=== PATIENT | male | born 1935 | race Caucasian/White ===

== ENCOUNTER 2020-06-05 16:34 | Inpatient (IN) ==
[2020-06-09] MEDS ORDERED: *HR* Dextrose 50 % in Water (Vial) 50 ML VIAL IVP PRN (17:42)
[2020-06-09] MEDS ORDERED: D5% in Water 1,000 ML IVC PRN (17:42)
[2020-06-09] MEDS ORDERED: Dextrose Gel 15 GM/37.5 ML TUBE PO PRN ×2 (17:42)
[2020-06-09] MEDS: carvediloL 25 MG TABLET PO SCH (22:07)
[2020-06-09] MEDS: Insulin LISPRO 300 UNITS/3 ML VIAL SQ SCH (22:07)
[2020-06-09] MEDS: Gabapentin 400 MG CAPSULE PO SCH (22:07)
[2020-06-09] MEDS: GlipiZIDE 5 MG TABLET PO SCH (22:07)
[2020-06-10 05:35] LABS: Basophils # 0.1 K/mcL (0.0-0.2); Basophils % 1.3 %; Eosinophils # 0.3 K/mcL (0.0-0.6); Eosinophils % 4.3 %; Hematocrit 46.4 % (37.5-50.1); Hemoglobin 15.5 g/dL (12.9-16.9); Immature Granulocytes % 0.5 % (0-4); Lymphocytes # 1.9 K/mcL (0.6-4.6); Lymphocytes % 24.1 %; Mean Corpuscular HGB Conc 33.4 g/dL (31.6-35.5); Mean Corpuscular Hemoglobin 29.7 pg (28.0-33.3); Mean Corpuscular Volume 88.9 fL (83.0-100.0); Mean Platelet Volume 10.8 fL (9.4-12.4); Monocytes # 0.8 K/mcL (0.0-1.3); Monocytes % 9.9 %; Neutrophils # 4.8 K/mcL (1.6-8.9); Platelet Count 213 K/mcL (140-400); Red Blood Count 5.22 M/mcL (4.19-5.50); Red Cell Distribution Width 13.2 % (11.5-14.5); Segmented Neutrophils % 59.9 %
[2020-06-10 05:51] LABS: Calcium 8.6 mg/dL (8.6-10.3)
[2020-06-10] MEDS: Cholecalciferol (D-3) 1,000 UNIT (25MCG) TABLET PO SCH (08:33)
[2020-06-10] MEDS: Finasteride 5 MG TABLET PO SCH (08:33)
[2020-06-10] MEDS: amLODIPine 5 MG TABLET PO SCH (08:34)
[2020-06-10] MEDS: Aspirin 81 MG TAB.CHEW PO SCH (08:34)
[2020-06-10] MEDS: *HR* Metformin 500 MG TABLET PO SCH (08:34)
[2020-06-10] MEDS: Fenofibrate 54 MG TABLET PO SCH (08:34)
[2020-06-10] MEDS: Cyanocobalamin (B-12) 1,000 MCG TABLET PO SCH (08:34)
[2020-06-10] MEDS: GlipiZIDE 5 MG TABLET PO SCH ×2 (08:34→21:04)
[2020-06-10] MEDS: carvediloL 25 MG TABLET PO SCH ×2 (08:34→21:03)
[2020-06-10] MEDS: Insulin LISPRO 300 UNITS/3 ML VIAL SQ SCH ×4 (08:34→21:04)
[2020-06-10] MEDS: Gabapentin 400 MG CAPSULE PO SCH (21:04)
[2020-06-11] MEDS: Aspirin 81 MG TAB.CHEW PO SCH (09:20)
[2020-06-11] MEDS: Insulin LISPRO 300 UNITS/3 ML VIAL SQ SCH ×4 (09:20→20:23)
[2020-06-11] MEDS: GlipiZIDE 5 MG TABLET PO SCH ×2 (09:21→20:23)
[2020-06-11] MEDS: carvediloL 25 MG TABLET PO SCH ×2 (09:21→20:23)
[2020-06-11] MEDS: *HR* Metformin 500 MG TABLET PO SCH (09:21)
[2020-06-11] MEDS: Cholecalciferol (D-3) 1,000 UNIT (25MCG) TABLET PO SCH (09:21)
[2020-06-11] MEDS: Cyanocobalamin (B-12) 1,000 MCG TABLET PO SCH (09:21)
[2020-06-11] MEDS: amLODIPine 5 MG TABLET PO SCH (09:22)
[2020-06-11] MEDS: Fenofibrate 54 MG TABLET PO SCH (09:22)
[2020-06-11] MEDS: Finasteride 5 MG TABLET PO SCH (09:22)
[2020-06-11] MEDS: Gabapentin 400 MG CAPSULE PO SCH (20:24)
[2020-06-12 06:56] LABS: Basophils # 0.1 K/mcL (0.0-0.2); Basophils % 0.9 %; Eosinophils # 0.3 K/mcL (0.0-0.6); Eosinophils % 3.3 %; Hematocrit 46.7 % (37.5-50.1); Hemoglobin 15.6 g/dL (12.9-16.9); Immature Granulocytes % 0.9 % (0-4); Lymphocytes # 1.6 K/mcL (0.6-4.6); Lymphocytes % 19.9 %; Mean Corpuscular HGB Conc 33.4 g/dL (31.6-35.5); Mean Corpuscular Hemoglobin 29.9 pg (28.0-33.3); Mean Corpuscular Volume 89.5 fL (83.0-100.0); Mean Platelet Volume 11.1 fL (9.4-12.4); Monocytes # 0.7 K/mcL (0.0-1.3); Neutrophils # 5.2 K/mcL (1.6-8.9); Platelet Count 201 K/mcL (140-400); Red Blood Count 5.22 M/mcL (4.19-5.50); Red Cell Distribution Width 13.2 % (11.5-14.5); White Blood Count 7.9 K/mcL (4.3-11.1)
[2020-06-12 07:09] LABS: BUN/Creatinine Ratio 20 (6-26); Blood Urea Nitrogen 26 mg/dL (8-23); Calcium 8.4 mg/dL (8.6-10.3); Carbon Dioxide 26 mEq/L (23-29); Chloride 107 mEq/L (98-107); Glucose 85 mg/dL (70-105); Osmolality,Calculated 296 (280-300); Potassium 4.2 mEq/L (3.5-5.1); Sodium 141 mEq/L (136-145); eGFR For African Americans > 60 (> 60); eGFR For Non-African Americans 54 (> 60)
[2020-06-12] MEDS: Insulin LISPRO 300 UNITS/3 ML VIAL SQ SCH ×4 (07:30→21:30)
[2020-06-12] MEDS: GlipiZIDE 5 MG TABLET PO SCH ×2 (09:00→21:29)
[2020-06-12] MEDS: Aspirin 81 MG TAB.CHEW PO SCH (09:26)
[2020-06-12] MEDS: amLODIPine 5 MG TABLET PO SCH (09:26)
[2020-06-12] MEDS: Fenofibrate 54 MG TABLET PO SCH (09:26)
[2020-06-12] MEDS: Cyanocobalamin (B-12) 1,000 MCG TABLET PO SCH (09:27)
[2020-06-12] MEDS: *HR* Metformin 500 MG TABLET PO SCH (09:27)
[2020-06-12] MEDS: Finasteride 5 MG TABLET PO SCH (09:27)
[2020-06-12] MEDS: Cholecalciferol (D-3) 1,000 UNIT (25MCG) TABLET PO SCH (09:27)
[2020-06-12] MEDS: carvediloL 25 MG TABLET PO SCH ×2 (09:28→21:30)
[2020-06-12] MEDS: Gabapentin 400 MG CAPSULE PO SCH (21:29)
[2020-06-13] MEDS: Insulin LISPRO 300 UNITS/3 ML VIAL SQ SCH ×4 (08:24→21:13)
[2020-06-13] MEDS: Cholecalciferol (D-3) 1,000 UNIT (25MCG) TABLET PO SCH (08:46)
[2020-06-13] MEDS: Finasteride 5 MG TABLET PO SCH (08:46)
[2020-06-13] MEDS: Aspirin 81 MG TAB.CHEW PO SCH (08:47)
[2020-06-13] MEDS: Fenofibrate 54 MG TABLET PO SCH (08:47)
[2020-06-13] MEDS: *HR* Metformin 500 MG TABLET PO SCH (08:47)
[2020-06-13] MEDS: amLODIPine 5 MG TABLET PO SCH (08:47)
[2020-06-13] MEDS: GlipiZIDE 5 MG TABLET PO SCH ×2 (08:48→21:12)
[2020-06-13] MEDS: carvediloL 25 MG TABLET PO SCH ×2 (08:48→21:12)
[2020-06-13] MEDS: Cyanocobalamin (B-12) 1,000 MCG TABLET PO SCH (08:48)
[2020-06-13] MEDS: Gabapentin 400 MG CAPSULE PO SCH (21:13)
[2020-06-14] MEDS: Insulin LISPRO 300 UNITS/3 ML VIAL SQ SCH ×4 (07:39→20:55)
[2020-06-14] MEDS: Cyanocobalamin (B-12) 1,000 MCG TABLET PO SCH (08:21)
[2020-06-14] MEDS: *HR* Metformin 500 MG TABLET PO SCH (08:22)
[2020-06-14] MEDS: GlipiZIDE 5 MG TABLET PO SCH ×2 (08:22→20:54)
[2020-06-14] MEDS: Fenofibrate 54 MG TABLET PO SCH (08:22)
[2020-06-14] MEDS: Aspirin 81 MG TAB.CHEW PO SCH (08:23)
[2020-06-14] MEDS: carvediloL 25 MG TABLET PO SCH ×2 (08:23→19:37)
[2020-06-14] MEDS: Finasteride 5 MG TABLET PO SCH (08:23)
[2020-06-14] MEDS: Cholecalciferol (D-3) 1,000 UNIT (25MCG) TABLET PO SCH (08:23)
[2020-06-14] MEDS: amLODIPine 5 MG TABLET PO SCH (08:23)
[2020-06-14] MEDS: Gabapentin 400 MG CAPSULE PO SCH (19:37)
[2020-06-15] MEDS: Insulin LISPRO 300 UNITS/3 ML VIAL SQ SCH ×4 (09:13→20:50)
[2020-06-15] MEDS: amLODIPine 5 MG TABLET PO SCH (09:33)
[2020-06-15] MEDS: carvediloL 25 MG TABLET PO SCH ×2 (09:33→20:49)
[2020-06-15] MEDS: Aspirin 81 MG TAB.CHEW PO SCH (09:33)
[2020-06-15] MEDS: Fenofibrate 54 MG TABLET PO SCH (09:33)
[2020-06-15] MEDS: *HR* Metformin 500 MG TABLET PO SCH (09:33)
[2020-06-15] MEDS: Finasteride 5 MG TABLET PO SCH (09:34)
[2020-06-15] MEDS: GlipiZIDE 5 MG TABLET PO SCH ×2 (09:34→20:49)
[2020-06-15] MEDS: Cyanocobalamin (B-12) 1,000 MCG TABLET PO SCH (09:34)
[2020-06-15] MEDS: Cholecalciferol (D-3) 1,000 UNIT (25MCG) TABLET PO SCH (09:34)
[2020-06-15] MEDS: Gabapentin 400 MG CAPSULE PO SCH (20:49)
[2020-06-16] MEDS: carvediloL 25 MG TABLET PO SCH ×2 (08:08→20:43)
[2020-06-16] MEDS: Cyanocobalamin (B-12) 1,000 MCG TABLET PO SCH (08:09)
[2020-06-16] MEDS: Insulin LISPRO 300 UNITS/3 ML VIAL SQ SCH ×4 (08:09→20:43)
[2020-06-16] MEDS: GlipiZIDE 5 MG TABLET PO SCH ×2 (08:09→20:43)
[2020-06-16] MEDS: Fenofibrate 54 MG TABLET PO SCH (08:09)
[2020-06-16] MEDS: Finasteride 5 MG TABLET PO SCH (08:09)
[2020-06-16] MEDS: Cholecalciferol (D-3) 1,000 UNIT (25MCG) TABLET PO SCH (08:09)
[2020-06-16] MEDS: *HR* Metformin 500 MG TABLET PO SCH (08:09)
[2020-06-16] MEDS: Aspirin 81 MG TAB.CHEW PO SCH (08:09)
[2020-06-16] MEDS: amLODIPine 5 MG TABLET PO SCH (08:09)
[2020-06-16] MEDS: Gabapentin 400 MG CAPSULE PO SCH (20:42)
[2020-06-17] MEDS: *HR* Metformin 500 MG TABLET PO SCH (08:12)
[2020-06-17] MEDS: Aspirin 81 MG TAB.CHEW PO SCH (08:12)
[2020-06-17] MEDS: Fenofibrate 54 MG TABLET PO SCH (08:13)
[2020-06-17] MEDS: Cholecalciferol (D-3) 1,000 UNIT (25MCG) TABLET PO SCH (08:13)
[2020-06-17] MEDS: GlipiZIDE 5 MG TABLET PO SCH ×2 (08:13→20:18)
[2020-06-17] MEDS: amLODIPine 5 MG TABLET PO SCH (08:13)
[2020-06-17] MEDS: carvediloL 25 MG TABLET PO SCH ×2 (08:13→20:19)
[2020-06-17] MEDS: Cyanocobalamin (B-12) 1,000 MCG TABLET PO SCH (08:14)
[2020-06-17] MEDS: Finasteride 5 MG TABLET PO SCH (08:14)
[2020-06-17] MEDS: Insulin LISPRO 300 UNITS/3 ML VIAL SQ SCH ×4 (08:14→22:47)
[2020-06-17] MEDS: Gabapentin 400 MG CAPSULE PO SCH (20:18)
[2020-06-18] MEDS: Insulin LISPRO 300 UNITS/3 ML VIAL SQ SCH ×4 (08:22→20:58)
[2020-06-18] MEDS: Aspirin 81 MG TAB.CHEW PO SCH (08:34)
[2020-06-18] MEDS: carvediloL 25 MG TABLET PO SCH ×2 (08:35→20:08)
[2020-06-18] MEDS: Fenofibrate 54 MG TABLET PO SCH (08:35)
[2020-06-18] MEDS: *HR* Metformin 500 MG TABLET PO SCH (08:35)
[2020-06-18] MEDS: Finasteride 5 MG TABLET PO SCH (08:35)
[2020-06-18] MEDS: amLODIPine 5 MG TABLET PO SCH (08:35)
[2020-06-18] MEDS: GlipiZIDE 5 MG TABLET PO SCH ×2 (08:35→20:09)
[2020-06-18] MEDS: Cyanocobalamin (B-12) 1,000 MCG TABLET PO SCH (08:36)
[2020-06-18] MEDS: Cholecalciferol (D-3) 1,000 UNIT (25MCG) TABLET PO SCH (08:36)
[2020-06-18] MEDS: Gabapentin 400 MG CAPSULE PO SCH (20:10)
[2020-06-19 06:08] LABS: Hematocrit 42.6 % (37.5-50.1); Mean Corpuscular HGB Conc 32.9 g/dL (31.6-35.5); Mean Corpuscular Hemoglobin 29.2 pg (28.0-33.3); Mean Corpuscular Volume 88.9 fL (83.0-100.0); Mean Platelet Volume 10.9 fL (9.4-12.4); Platelet Count 240 K/mcL (140-400); Red Blood Count 4.79 M/mcL (4.19-5.50); Red Cell Distribution Width 13.3 % (11.5-14.5); White Blood Count 5.7 K/mcL (4.3-11.1)
[2020-06-19 06:26] LABS: BUN/Creatinine Ratio 21 (6-26); Blood Urea Nitrogen 20 mg/dL (8-23); Calcium 8.4 mg/dL (8.6-10.3); Carbon Dioxide 28 mEq/L (23-29); Chloride 109 mEq/L (98-107); Glucose 147 mg/dL (70-105); Magnesium 1.5 mg/dL (1.6-2.6); Osmolality,Calculated 299 (280-300); Potassium 3.5 mEq/L (3.5-5.1); Sodium 142 mEq/L (136-145); eGFR For African Americans > 60 (> 60); eGFR For Non-African Americans > 60 (> 60)
[2020-06-19] MEDS: Insulin LISPRO 300 UNITS/3 ML VIAL SQ SCH ×4 (08:19→20:34)
[2020-06-19] MEDS: *HR* Metformin 500 MG TABLET PO SCH (08:21)
[2020-06-19] MEDS: GlipiZIDE 5 MG TABLET PO SCH ×2 (08:21→19:50)
[2020-06-19] MEDS: Aspirin 81 MG TAB.CHEW PO SCH (08:22)
[2020-06-19] MEDS: Finasteride 5 MG TABLET PO SCH (08:22)
[2020-06-19] MEDS: Fenofibrate 54 MG TABLET PO SCH (08:22)
[2020-06-19] MEDS: amLODIPine 5 MG TABLET PO SCH (08:22)
[2020-06-19] MEDS: Cyanocobalamin (B-12) 1,000 MCG TABLET PO SCH (08:22)
[2020-06-19] MEDS: carvediloL 25 MG TABLET PO SCH ×2 (08:23→19:50)
[2020-06-19] MEDS: Cholecalciferol (D-3) 1,000 UNIT (25MCG) TABLET PO SCH (12:03)
[2020-06-19] MEDS: Gabapentin 400 MG CAPSULE PO SCH (19:50)
[2020-06-20] MEDS: Fenofibrate 54 MG TABLET PO SCH (07:34)
[2020-06-20] MEDS: Cholecalciferol (D-3) 1,000 UNIT (25MCG) TABLET PO SCH (07:34)
[2020-06-20] MEDS: carvediloL 25 MG TABLET PO SCH ×2 (07:34→21:18)
[2020-06-20] MEDS: amLODIPine 5 MG TABLET PO SCH (07:35)
[2020-06-20] MEDS: *HR* Metformin 500 MG TABLET PO SCH (07:35)
[2020-06-20] MEDS: Cyanocobalamin (B-12) 1,000 MCG TABLET PO SCH (07:35)
[2020-06-20] MEDS: GlipiZIDE 5 MG TABLET PO SCH ×2 (07:35→21:18)
[2020-06-20] MEDS: Aspirin 81 MG TAB.CHEW PO SCH (07:35)
[2020-06-20] MEDS: Insulin LISPRO 300 UNITS/3 ML VIAL SQ SCH ×4 (07:40→21:18)
[2020-06-20] MEDS: Finasteride 5 MG TABLET PO SCH (07:56)
[2020-06-20] MEDS: Magnesium Oxide 400 MG TABLET PO SCH (16:55)
[2020-06-20] MEDS: Gabapentin 400 MG CAPSULE PO SCH (21:17)
[2020-06-21 05:46] LABS: Basophils # 0.1 K/mcL (0.0-0.2); Basophils % 1.4 %; Eosinophils # 0.3 K/mcL (0.0-0.6); Eosinophils % 4.2 %; Hematocrit 41.3 % (37.5-50.1); Hemoglobin 13.7 g/dL (12.9-16.9); Lymphocytes % 31.9 %; Mean Corpuscular HGB Conc 33.2 g/dL (31.6-35.5); Mean Corpuscular Hemoglobin 29.6 pg (28.0-33.3); Mean Corpuscular Volume 89.2 fL (83.0-100.0); Mean Platelet Volume 10.8 fL (9.4-12.4); Monocytes # 0.6 K/mcL (0.0-1.3); Monocytes % 10.1 %; Neutrophils # 3.2 K/mcL (1.6-8.9); Platelet Count 242 K/mcL (140-400); Red Blood Count 4.63 M/mcL (4.19-5.50); Red Cell Distribution Width 13.6 % (11.5-14.5); Segmented Neutrophils % 51.4 %; White Blood Count 6.3 K/mcL (4.3-11.1)
[2020-06-21 05:57] LABS: BUN/Creatinine Ratio 18 (6-26); Blood Urea Nitrogen 19 mg/dL (8-23); Calcium 8.1 mg/dL (8.6-10.3); Carbon Dioxide 27 mEq/L (23-29); Chloride 108 mEq/L (98-107); Glucose 64 mg/dL (70-105); Osmolality,Calculated 294 (280-300); Potassium 3.5 mEq/L (3.5-5.1); Sodium 142 mEq/L (136-145); eGFR For African Americans > 60 (> 60); eGFR For Non-African Americans > 60 (> 60)
[2020-06-21] MEDS: Fenofibrate 54 MG TABLET PO SCH (08:59)
[2020-06-21] MEDS: amLODIPine 5 MG TABLET PO SCH (08:59)
[2020-06-21] MEDS: GlipiZIDE 5 MG TABLET PO SCH ×2 (08:59→21:51)
[2020-06-21] MEDS: Cyanocobalamin (B-12) 1,000 MCG TABLET PO SCH (08:59)
[2020-06-21] MEDS: carvediloL 25 MG TABLET PO SCH ×2 (09:00→21:50)
[2020-06-21] MEDS: *HR* Metformin 500 MG TABLET PO SCH (09:00)
[2020-06-21] MEDS: Magnesium Oxide 400 MG TABLET PO SCH (09:00)
[2020-06-21] MEDS: Finasteride 5 MG TABLET PO SCH (09:00)
[2020-06-21] MEDS: Aspirin 81 MG TAB.CHEW PO SCH (09:00)
[2020-06-21] MEDS: Cholecalciferol (D-3) 1,000 UNIT (25MCG) TABLET PO SCH (09:00)
[2020-06-21] MEDS: Insulin LISPRO 300 UNITS/3 ML VIAL SQ SCH ×2 (11:23→21:51)
[2020-06-21 11:49] LABS: Estimated Average Glucose 203 mg/dl
[2020-06-21] MEDS: Gabapentin 400 MG CAPSULE PO SCH (21:50)
[2020-06-22] MEDS: carvediloL 25 MG TABLET PO SCH ×2 (09:06→20:24)
[2020-06-22] MEDS: Magnesium Oxide 400 MG TABLET PO SCH (09:06)
[2020-06-22] MEDS: *HR* Metformin 500 MG TABLET PO SCH (09:06)
[2020-06-22] MEDS: Cholecalciferol (D-3) 1,000 UNIT (25MCG) TABLET PO SCH (09:06)
[2020-06-22] MEDS: amLODIPine 5 MG TABLET PO SCH (09:07)
[2020-06-22] MEDS: GlipiZIDE 5 MG TABLET PO SCH ×2 (09:07→20:24)
[2020-06-22] MEDS: Finasteride 5 MG TABLET PO SCH (09:07)
[2020-06-22] MEDS: Fenofibrate 54 MG TABLET PO SCH (09:07)
[2020-06-22] MEDS: Cyanocobalamin (B-12) 1,000 MCG TABLET PO SCH (09:07)
[2020-06-22] MEDS: Aspirin 81 MG TAB.CHEW PO SCH (09:07)
[2020-06-22] MEDS: Gabapentin 400 MG CAPSULE PO SCH (20:24)
[2020-06-23 07:09] VITALS: BP 129/73
[2020-06-23] MEDS: GlipiZIDE 5 MG TABLET PO SCH (08:55)
[2020-06-23] MEDS: Fenofibrate 54 MG TABLET PO SCH (08:56)
[2020-06-23] MEDS: amLODIPine 5 MG TABLET PO SCH (08:56)
[2020-06-23] MEDS: carvediloL 25 MG TABLET PO SCH (08:56)
[2020-06-23] MEDS: Aspirin 81 MG TAB.CHEW PO SCH (08:56)
[2020-06-23] MEDS: Cyanocobalamin (B-12) 1,000 MCG TABLET PO SCH (08:56)
[2020-06-23] MEDS: Cholecalciferol (D-3) 1,000 UNIT (25MCG) TABLET PO SCH (08:56)
[2020-06-23] MEDS: Magnesium Oxide 400 MG TABLET PO SCH (08:56)
[2020-06-23] MEDS: *HR* Metformin 500 MG TABLET PO SCH (08:56)
[2020-06-23] MEDS: Finasteride 5 MG TABLET PO SCH (08:56)
== END 2020-06-23 11:30 | disposition home health service (06) | DRG 945 ==
LOC: INPGRE 06-09 16:48
PROVIDERS: ADMIT Family Medicine; ATTEND Family Medicine